=== PATIENT | male | born 1970 | race African-American/Black ===

== ENCOUNTER 2020-02-17 11:13 | Emergency (ER) | payer MEDICAID, OTHER ==
[~2020-02-17] VITALS: Ht 185.4 cm; Wt 116.0 kg
[2020-02-17 11:20] VITALS: BP 150/98
== END 2020-02-17 12:25 | disposition left against medical advice (07) ==
LOC: ER 11:13
DX: K64.9 Unspecified hemorrhoids (principal); Z53.21 Procedure and treatment not carried out due to patient leaving prior to being seen by health care provider